=== PATIENT | male | born 1935 | race Caucasian/White ===

== ENCOUNTER 2017-11-23 10:05 | Emergency (ER) | payer MEDICARE ==
[2017-11-23] MEDS ORDERED: Magnesium Sulfate 2 GM/NS 0.9% 50 ML BAG ONE (10:24)
[2017-11-23] MEDS ORDERED: methylPREDNISolone Sod Succ/PF 125 MG/2 ML VIAL ONE (10:24)
[2017-11-23 10:53] LABS: ALT (SGPT) 435 U/L (8-55); AST (SGOT) 265 U/L (5-34); Albumin 4.1 g/dL (3.4-4.8); Alkaline Phosphatase 86 U/L (40-150); Anion Gap 19 mmol/L (10-20); BUN (Urea Nitrogen) 69 mg/dL (8.4-25.7); Bilirubin, Total 0.5 mg/dL (0.2-1.2); Calc. Creatinine Clearance 0 mL/min (70-130); Calcium 9.1 mg/dL (7.8-10.44); Estimated GFR-MDRD 44; Globulin 2.7 g/dL (2.4-3.5); Glucose 92 mg/dL (83-110); Protein, Total 6.8 g/dL (5.8-8.1)
[2017-11-23 10:55] LABS: #Lymphocytes 0.2 thou/uL (1.20-3.40); #Monocytes 0.7 thou/uL (0.11-0.59); #Neutrophils 10.2 thou/uL (1.40-6.50); %Basophils 0.2 % (0.0-1.0); %Lymphocytes 1.5 % (21.0-51.0); %Monocytes 6.6 % (0.0-10.0); %Neutrophils 91.7 % (42.0-75.0); Hemoglobin 13.4 g/dL (14.0-18.0); Mean Corpuscular HGB CONC 30.2 g/dL (32.0-36.0); Mean Corpuscular Volume 99.2 fL (78.0-98.0); PLT Morphology Comment PLT clumps seen-LOW; Platelet Count 113 thou/uL (130-400); RBC Distribution Width 13.4 % (11.5-14.5); Red Blood Cell (RBC) Count 4.47 mill/uL (4.70-6.10); White Blood Cell (WBC) Count 11.1 thou/uL (4.8-10.8)
[2017-11-23 11:01] LABS: Carbon Dioxide 40 mmol/L (23-31); Chloride 92 mmol/L (98-107); Manual Diff?? NO; Potassium 5.3 mmol/L (3.5-5.1); Sodium 146 mmol/L (136-145)
--- NOTE | 2017-11-23 11:18 | RAD ---
RADIOGRAPH CHEST 1 VIEW: HISTORY: 82-year-old male with dyspnea. FINDINGS: There is hyperinflation of the lungs, consistent with COPD. There is no evidence of air space densit y, pneumothorax, or pulmonary edema. The lateral costophrenic angles are sharp. There is no cardiome gilma. IMPRESSION: 1) No acute pulmonary findings. 2) Emphysema. lucy POS: NIRAJ
[2017-11-23] MEDS ORDERED: ALPRAZolam 0.25 MG TAB ONE (11:45)
== END 2017-11-23 12:34 | disposition short-term general hospital (02) ==
LOC: MADERS 10:05
DX: J44.1 Chronic obstructive pulmonary disease with (acute) exacerbation (principal); R09.02 Hypoxemia; E87.5 Hyperkalemia; I21.4 Non-ST elevation (NSTEMI) myocardial infarction; Z87.891 Personal history of nicotine dependence; Z79.899 Other long term (current) drug therapy
CPT/HCPCS: 71045; 80053; 84484; 85025; 93005; 96365; 96375; J2930; J3475; J7620